=== PATIENT | male | born 1965 | race Hispanic/Latino ===

== ENCOUNTER 2020-02-16 21:40 | Emergency (ER) | payer SELFPAY ==
[~2020-02-16] VITALS: Ht 165.1 cm; Wt 113.4 kg
--- NOTE | 2020-02-16 21:49 | Emergency Department Note ---
History of Present Illnes History of Present Illness Chief Complaint: General Medicine Complaints History of Present Illness This is a 54 year old male presents to the ED for elevated blood sugar and penile swelling of 4 weeks duration. Reports generalized weakness with dyspnea and CP Historian: Patient Onset (how long ago): week(s) (4) Severity: moderate Onset quality: gradual Duration (how long): week(s) (4) Timing of current episode: constant Progression: unchanged Chronicity: new Context: Denies recent illness, Denies recent surgery, Denies recent immobilization, Denies recent travel, Denies trauma/injury, Denies new medications, Denies hx of DVT/PE, Denies non-compliance w/ medications, Denies other Relieving factors: none Exacerbating factors: none Associated symptoms: Reports chest pain, Reports weakness Treatments prior to arrival: none Past Medical/Family History Physician Review I have reviewed the patient's past medical and family history. Any updates have been documented here. Past Medical History Recent Fever: No Clinical Suspicion of Infectio: No New/Unexplained Change in Ment: No Past Medical History: Hypertension, Diabetes Past Surgical History: None Social History Smoking Cessation: Current some day smoker Counseling Performed: Yes Alcohol Use: None Any Illegal Drug Use: No Review of Systems Review of Systems Constitutional: Reports malaise, Reports weakness Cardiovascular: Reports edema Genitourinary: Reports other (penile lesion) Physical Exam Related Data Allergies: Coded Allergies: No Known Allergies (Unverified , 02/16/20) Triage Vital Signs Vital Signs Date Time Temp Pulse Resp B/P (MAP) Pulse Ox O2 Delivery O2 Flow Rate FiO2 02/16/20 22:00 98.2 88 18 148/89 97 Room Air Vital signs reviewed: Yes Physical Exam CONSTITUTIONAL Constitutional: Present well-developed, Present well-nourished, Present obese HENT HENT: Present normocephalic, Present atraumatic, Present oropharynx clear/moist, Present nose normal HENT L/R: Present left ext ear normal, Present right ext ear normal EYES Eyes: Reports PERRL, Reports conjunctivae normal NECK Neck: Present ROM normal PULMONARY Pulmonary: Present effort normal, Present breath sounds normal CARDIOVASCULAR Cardiovascular: Present regular rhythm, Present heart sounds normal, Present capillary refill normal, Present normal rate GASTROINTESTINAL Abdominal: Present soft, Present nontender, Present bowel sounds normal GENITOURINARY Genitourinary: Present other (mild inflammation of the glans penis with hyperkerotosis of the foreskin) SKIN Skin: Present warm, Present dry MUSCULOSKELETAL Musculoskeletal: Present edema NEUROLOGICAL Neurological: Present alert, Present oriented x 3, Present no gross motor or sensory deficits PSYCHOLOGICAL Psychological: Present mood/affect normal, Present judgement normal Results Laboratory Lab results reviewed: Yes Laboratory comments Laboratory Tests Test 02/16/20 23:07 02/16/20 22:00 Arterial Blood pH 7.39 (7.35-7.45) Arterial Blood Partial Pressure CO2 38 mmHg (35-45) Arterial Blood Partial Pressure O2 83 mmHg (80-105) Arterial Blood HCO3 23 mmol/L (22-26) Arterial Blood Total CO2 24 Arterial Blood Oxygen Saturation 96.0 % (95-98) Arterial Blood Base Excess -1.0 mmol/L (-2 - 3) FiO2 21 % White Blood Count 5.82 x10e3/uL (4.8-10.8) Red Blood Count 5.37 x10e6/uL (4.3-5.7) Hemoglobin 14.3 g/dL (14.0-18.0) Hematocrit 43.9 % (38.2-49.6) Mean Corpuscular Volume 81.8 fL (81-99) Mean Corpuscular Hemoglobin 26.6 pg (28-32) Mean Corpuscular Hemoglobin Concent 32.6 g/dL (31-35) Red Cell Distribution Width 13.3 % (11.7-14.4) Platelet Count 267 x10e3/uL (140-360) Neutrophils (%) (Auto) 55.5 % (38.7-80.0) Lymphocytes (%) (Auto) 33.7 % (18.0-39.1) Monocytes (%) (Auto) 9.3 % (4.4-11.3) Eosinophils (%) (Auto) 1.0 % (0.0-6.0) Basophils (%) (Auto) 0.2 % (0.0-1.0) Neutrophils # (Auto) 3.2 (2.1-6.9) Lymphocytes # (Auto) 2.0 (1.0-3.2) Monocytes # (Auto) 0.5 (0.2-0.8) Eosinophils # (Auto) 0.1 (0.0-0.4) Basophils # (Auto) 0.0 (0.0-0.1) Absolute Immature Granulocyte (auto 0.02 x10e3/uL (0-0.1) Urine Color Yellow (YELLOW) Urine Clarity Clear (CLEAR) Urine pH 5.5 (5 - 7) Urine Specific [place] 1.010 (1.010-1.025) Urine Protein Negative (NEGATIVE) Urine Glucose (UA) 2+ (NEGATIVE) Urine Ketones Negative (NEGATIVE) Urine Blood Negative (NEGATIVE) Urine Nitrite Negative (NEGATIVE) Urine Bilirubin Negative (NEGATIVE) Urine Urobilinogen 0.2 mg/dL (0.2 - 1) Urine Leukocyte Esterase Negative (NEGATIVE) Urine RBC 0-5 /HPF (0-5) Urine WBC 0-5 /HPF (0-5) Urine Epithelial Cells Few /LPF (NONE) Urine Bacteria Few /HPF (NONE) Sodium Level 134 mmol/L (136-145) Potassium Level 4.0 mmol/L (3.5-5.1) Chloride Level 99 mmol/L (98-107) Carbon Dioxide Level 24 mmol/L (22-29) Anion Gap 15.0 mmol/L (8-16) Blood Urea Nitrogen 14 mg/dL (7-26) Creatinine 1.20 mg/dL (0.72-1.25) Estimat Glomerular Filtration Rate > 60 ML/MIN (60-) BUN/Creatinine Ratio 12 (6-25) Glucose Level 425 mg/dL (74-118) Calcium Level 9.0 mg/dL (8.4-10.2) Total Bilirubin 0.2 mg/dL (0.2-1.2) Aspartate Amino Transf (AST/SGOT) 16 IU/L (5-34) Alanine Aminotransferase (ALT/SGPT) 28 IU/L (0-55) Alkaline Phosphatase 122 IU/L (40-150) Creatine Kinase 94 IU/L (30-200) Creatine Kinase MB 2.10 ng/mL (0-5.0) Troponin I 0.011 ng/mL (0-0.300) B-Type Natriuretic Peptide < 10.0 pg/mL (0-100) Total Protein 7.4 g/dL (6.5-8.1) Albumin 4.3 g/dL (3.5-5.0) Globulin 3.1 g/dL (2.3-3.5) Albumin/Globulin Ratio 1.4 (0.8-2.0) Imaging Imaging results reviewed: Yes Impressions [facility] [address] [address] Patient Name: JUDY GONZALEZ MR #: [id number] : 1965 Age/Sex: 54/M Req #: [id number] Adm Physician: Ordered by: JALEN LOPEZ DO Report #: [id number] Location: ER Room/Bed: Procedure: [id number] DX/CHEST SINGLE (PORTABLE) Exam Date: 02/16/20 Exam Time: 2224 REPORT STATUS: Signed EXAMINATION: CHEST SINGLE (PORTABLE) INDICATION: ^ERMD ORDER ^[id number] ^2224 ^Y COMPARISON: None FINDINGS: AP view TUBES and LINES: None. LUNGS: Lungs are well inflated. There is no evidence of pneumonia or pulmonary edema. PLEURA: No pleural effusion or pneumothorax. HEART AND MEDIASTINUM: The cardiomediastinal silhouette is unremarkable. BONES AND SOFT TISSUES: No acute osseous lesion. Soft tissues are unremarkable. UPPER ABDOMEN: No free air under the diaphragm. IMPRESSION: No acute thoracic abnormality. Signed by: Dr. Nigel Alvarado MD on 02/16/2020 11:33 PM Dictated By: NIGEL ALVARADO MD 32 Transcribed By: KINA on 02/16/202332 COPY TO: JALEN LOPEZ DO~ Assessment & Plan Medical Decision Making MDM Diff Dx : CHF, DKA, ACS, UTI, balanitis, phimosis, paraphimosis Assessment & Plan Final Impression: (1) Hyperglycemia (2) Balanitis Depart Disposition: HOME, SELF-CARE JALEN LOPEZ DO Feb 16, 2020 21:49
--- NOTE | 2020-02-16 22:37 | NUR ---
PER ER MD, EKG NOT INDICATED AT THIS TIME; ORDER TO BE CANCELED
[2020-02-16 22:39] LABS: BASOPHILS % 0.2 % (0.0-1.0); EOSINOPHILS # (AUTO) 0.1 (0.0-0.4); HEMATOCRIT 43.9 % (38.2-49.6); HEMOGLOBIN 14.3 g/dL (14.0-18.0); LYMPHOCYTES % 33.7 % (18.0-39.1); MEAN CORPUSCULAR HEMOGLOBIN 26.6 pg (28-32); MEAN CORPUSCULAR HGB CONC 32.6 g/dL (31-35); MEAN CORPUSCULAR VOLUME 81.8 fL (81-99); MONOCYTES # (AUTO) 0.5 (0.2-0.8); MONOCYTES % 9.3 % (4.4-11.3); NEUTROPHILS # (AUTO) 3.2 (2.1-6.9); NEUTROPHILS % 55.5 % (38.7-80.0); PLATELET COUNT 267 x10e3/uL (140-360); RED BLOOD COUNT 5.37 x10e6/uL (4.3-5.7); RED CELL DISTRIBUTION WIDTH 13.3 % (11.7-14.4)
[2020-02-16 22:40] LABS: BILIRUBIN,URINE NEGATIVE (NEGATIVE); CLARITY,URINE CLEAR (CLEAR); COLOR,URINE YELLOW (YELLOW); KETONES,URINE NEGATIVE (NEGATIVE); LEUKOCYTE ESTERASE ,URINE NEGATIVE (NEGATIVE); NITRITE,URINE NEGATIVE (NEGATIVE); PROTEIN,URINE DIPSTICK NEGATIVE (NEGATIVE); URINE UROBILINOGEN 0.2 mg/dL (0.2 - 1)
[2020-02-16 22:45] LABS: BACTERIA,URINE FEW /HPF; EPITHELIAL CELLS,URINE FEW /LPF; RBC,URINE 0-5 /HPF (0-5); WBC,URINE (MAN) 0-5 /HPF (0-5)
[2020-02-16 22:56] LABS: ALANINE AMINOTRANSFERASE 28 IU/L (0-55); ALBUMIN 4.3 g/dL (3.5-5.0); ALBUMIN/GLOBULIN RATIO 1.4 (0.8-2.0); ALKALINE PHOSPHATASE 122 IU/L (40-150); BLOOD UREA NITROGEN 14 mg/dL (7-26); BUN/CREATININE RATIO 12 (6-25); CARBON DIOXIDE 24 mmol/L (22-29); CHLORIDE 99 mmol/L (98-107); CREATINE KINASE 94 IU/L (30-200); EST GLOMERULAR FILTRATION RATE > 60 ML/MIN (60-); SODIUM 134 mmol/L (136-145)
[2020-02-16 22:57] LABS: GLUCOSE 425 mg/dL (74-118)
[2020-02-16] MEDS ORDERED: SODIUM CHLORIDE 0.9% 1000ML 1,000 ML IV STA (23:08)
[2020-02-16] MEDS ORDERED: INSULIN REGULAR, HUMAN 100 UNIT/1 ML 3ML VIAL IV ONE (23:15)
[2020-02-16 23:34] LABS: ABG HCO3 23 mmol/L (22-26); ABG PCO2 38 mmHg (35-45); ABG PH 7.39 (7.35-7.45); ABG PO2 83 mmHg (80-105); ABG TCO2 24
--- NOTE | 2020-02-16 23:36 | Diagnostic Imaging Report ---
EXAMINATION: CHEST SINGLE (PORTABLE) INDICATION: ^ERMD ORDER ^[id number] ^2225 ^Y COMPARISON: None FINDINGS: AP view TUBES and LINES: None. LUNGS: Lungs are well inflated. There is no evidence of pneumonia or pulmonary edema. PLEURA: No pleural effusion or pneumothorax. HEART AND MEDIASTINUM: The cardiomediastinal silhouette is unremarkable. BONES AND SOFT TISSUES: No acute osseous lesion. Soft tissues are unremarkable. UPPER ABDOMEN: No free air under the diaphragm. IMPRESSION: No acute thoracic abnormality. Signed by: Dr. Nigel Alvarado MD on 02/16/2020 11:33 PM
[2020-02-17 01:14] VITALS: BP 105/85
== END 2020-02-17 01:18 | disposition home or self-care (01) ==
LOC: ER 22:51
DX: N48.1 Balanitis (principal); E11.65 Type 2 diabetes mellitus with hyperglycemia; I10 Essential (primary) hypertension; F17.210 Nicotine dependence, cigarettes, uncomplicated
CPT/HCPCS: 36415; 71045; 80053; 81001; 82550; 82553; 82805; 83880; 84484; 85025; 99283; J7030; 82948; J1817

== ENCOUNTER 2020-06-09 20:24 | Inpatient (IN) | payer SELFPAY ==
[~2020-06-09] VITALS: Ht 165.1 cm; Wt 108.1 kg
[2020-06-09] MEDS ORDERED: CEFEPIME 1GM/NS 0.9% 50 ML 50 ML IV STA (20:26)
[2020-06-09] MEDS ORDERED: SODIUM CHLORIDE 0.9% 1000ML 1,000 ML IV STA (20:26)
[2020-06-09] MEDS ORDERED: ASPIRIN 81 MG CHEW TAB PO ONE (20:30)
[2020-06-09] MEDS ORDERED: ACETAMINOPHEN 325 MG TAB PO ONE (20:30)
[2020-06-09 21:08] LABS: BASOPHILS % 0.2 % (0.0-1.0); EOSINOPHILS % 0.1 % (0.0-6.0); HEMATOCRIT 40.1 % (38.2-49.6); HEMOGLOBIN 13.5 g/dL (14.0-18.0); LYMPHOCYTES # (AUTO) 1.9 (1.0-3.2); LYMPHOCYTES % 14.5 % (18.0-39.1); MEAN CORPUSCULAR HEMOGLOBIN 26.8 pg (28-32); MEAN CORPUSCULAR HGB CONC 33.7 g/dL (31-35); MEAN CORPUSCULAR VOLUME 79.6 fL (81-99); MONOCYTES # (AUTO) 1.4 (0.2-0.8); MONOCYTES % 10.9 % (4.4-11.3); NEUTROPHILS # (AUTO) 9.5 (2.1-6.9); NEUTROPHILS % 73.8 % (38.7-80.0); PLATELET COUNT 309 x10e3/uL (140-360); RED BLOOD COUNT 5.04 x10e6/uL (4.3-5.7); RED CELL DISTRIBUTION WIDTH 12.9 % (11.7-14.4)
[2020-06-09 21:32] LABS: ALANINE AMINOTRANSFERASE 41 IU/L (0-55); ALBUMIN 2.9 g/dL (3.5-5.0); ALBUMIN/GLOBULIN RATIO 0.5 (0.8-2.0); ALKALINE PHOSPHATASE 92 IU/L (40-150); ANION GAP 19.4 mmol/L (8-16); BLOOD UREA NITROGEN 14 mg/dL (7-26); BUN/CREATININE RATIO 12 (6-25); CALCIUM 9.3 mg/dL (8.4-10.2); CARBON DIOXIDE 20 mmol/L (22-29); CHLORIDE 93 mmol/L (98-107); CREATINE KINASE 329 IU/L (30-200); EST GLOMERULAR FILTRATION RATE > 60 ML/MIN (60-); GLUCOSE 158 mg/dL (74-118); POTASSIUM 4.4 mmol/L (3.5-5.1); SODIUM 128 mmol/L (136-145)
[2020-06-09] MEDS ORDERED: SODIUM CHLORIDE 0.9% 50ML 50 ML ONE (23:00)
[2020-06-09] MEDS ORDERED: IOPAMIDOL 370 MG/ML 200 ML INFUS..BTL INJ ONE (23:00)
[2020-06-10] MEDS: SODIUM CHLORIDE 0.9% 1000ML 1,000 ML IV SCH ×3 (05:29→17:18)
[2020-06-10] MEDS: ACETAMINOPHEN 325 MG TAB PO PRN ×2 (05:48→13:31)
[2020-06-10] MEDS: ONDANSETRON HCL INJ 2MG/ML 2ML 2 MG/ML VIAL IV PRN ×2 (13:31→22:08)
[2020-06-10] MEDS ORDERED: ACETAMINOPHEN 325 MG TAB PO PRN (15:45)
[2020-06-10] MEDS ORDERED: DEXTROSE 50% SYRINGE 50 ML IV PRN (16:00)
[2020-06-10 16:25] LABS: CLARITY,URINE HAZY (CLEAR); COLOR,URINE YELLOW (YELLOW); KETONES,URINE NEGATIVE (NEGATIVE); LEUKOCYTE ESTERASE ,URINE SMALL (NEGATIVE); NITRITE,URINE NEGATIVE (NEGATIVE); PROTEIN,URINE DIPSTICK 1+ (NEGATIVE); URINE UROBILINOGEN 0.2 mg/dL (0.2 - 1)
[2020-06-10 16:30] LABS: AMORPHOUS SEDIMENT,URINE FEW (FEW); BACTERIA,URINE FEW /HPF; EPITHELIAL CELLS,URINE FEW /LPF; MUCUS,URINE FEW (RARE); WBC,URINE (MAN) 21-50 /HPF (0-5)
[2020-06-10 17:24] VITALS: BP 122/77
[2020-06-10 17:25] VITALS: BP 122/77
[2020-06-10 17:37] VITALS: BP 122/77
[2020-06-10 20:23] VITALS: BP 133/71
[2020-06-10 21:46] VITALS: BP 133/71
[2020-06-10] MEDS: CEFEPIME 1GM/NS 0.9% 50 ML 50 ML IV SCH (22:00)
[2020-06-10] MEDS ORDERED: CEFEPIME HCL 1 GM VIAL IV SCH (22:00)
[2020-06-10] MEDS ORDERED: LISINOPRIL10 MG PO (22:30)
[2020-06-10] MEDS ORDERED: ATORVASTATIN CA20 MG PO (22:30)
[2020-06-10] MEDS ORDERED: METFORMIN HCL500 MG PO (22:30)
[2020-06-10] MEDS ORDERED: JANUVIA100 MG PO (22:30)
[2020-06-11] VITALS (8 sets, daily range): BP systolic 112–131; BP diastolic 59–79
[2020-06-11] MEDS: SODIUM CHLORIDE 0.9% 1000ML 1,000 ML IV SCH ×2 (01:00→10:00)
[2020-06-11] MEDS: CEFEPIME 1GM/NS 0.9% 50 ML 50 ML IV SCH ×3 (05:09→22:00)
[2020-06-11 06:13] LABS: BASOPHILS % 0.4 % (0.0-1.0); EOSINOPHILS % 0.4 % (0.0-6.0); HEMATOCRIT 34.6 % (38.2-49.6); HEMOGLOBIN 11.1 g/dL (14.0-18.0); LYMPHOCYTES # (AUTO) 1.3 (1.0-3.2); MEAN CORPUSCULAR HEMOGLOBIN 26.5 pg (28-32); MEAN CORPUSCULAR HGB CONC 32.1 g/dL (31-35); MEAN CORPUSCULAR VOLUME 82.6 fL (81-99); MONOCYTES # (AUTO) 0.8 (0.2-0.8); MONOCYTES % 16.3 % (4.4-11.3); NEUTROPHILS # (AUTO) 2.9 (2.1-6.9); NEUTROPHILS % 56.5 % (38.7-80.0); PLATELET COUNT 201 x10e3/uL (140-360); RED BLOOD COUNT 4.19 x10e6/uL (4.3-5.7)
[2020-06-11 07:02] LABS: ANION GAP 13.9 mmol/L (8-16); BLOOD UREA NITROGEN 11 mg/dL (7-26); BUN/CREATININE RATIO 13 (6-25); CARBON DIOXIDE 23 mmol/L (22-29); CHLORIDE 104 mmol/L (98-107); CREATININE, SERUM 0.87 mg/dL (0.72-1.25); EST GLOMERULAR FILTRATION RATE > 60 ML/MIN (60-); GLUCOSE 133 mg/dL (74-118); POTASSIUM 3.9 mmol/L (3.5-5.1); SODIUM 137 mmol/L (136-145)
[2020-06-11] MEDS: METFORMIN HCL 500 MG TAB PO SCH ×2 (10:00→16:45)
[2020-06-12 01:15] VITALS: BP 117/78
[2020-06-12] MEDS: CEFEPIME 1GM/NS 0.9% 50 ML 50 ML IV SCH ×2 (05:41→15:00)
[2020-06-12 06:24] LABS: ANION GAP 12.9 mmol/L (8-16); BLOOD UREA NITROGEN 9 mg/dL (7-26); BUN/CREATININE RATIO 12 (6-25); CALCIUM 8.4 mg/dL (8.4-10.2); CARBON DIOXIDE 22 mmol/L (22-29); CHLORIDE 103 mmol/L (98-107); CREATININE, SERUM 0.78 mg/dL (0.72-1.25); EST GLOMERULAR FILTRATION RATE > 60 ML/MIN (60-); GLUCOSE 129 mg/dL (74-118); POTASSIUM 3.9 mmol/L (3.5-5.1); SODIUM 134 mmol/L (136-145)
[2020-06-12 06:51] LABS: BASOPHILS % 0.5 % (0.0-1.0); EOSINOPHILS % 0.7 % (0.0-6.0); HEMATOCRIT 35.3 % (38.2-49.6); HEMOGLOBIN 11.4 g/dL (14.0-18.0); LYMPHOCYTES # (AUTO) 1.8 (1.0-3.2); LYMPHOCYTES % 30.9 % (18.0-39.1); MEAN CORPUSCULAR HEMOGLOBIN 26.5 pg (28-32); MEAN CORPUSCULAR HGB CONC 32.3 g/dL (31-35); MEAN CORPUSCULAR VOLUME 81.9 fL (81-99); MONOCYTES % 18.4 % (4.4-11.3); NEUTROPHILS # (AUTO) 2.8 (2.1-6.9); PLATELET COUNT 217 x10e3/uL (140-360); RED BLOOD COUNT 4.31 x10e6/uL (4.3-5.7); RED CELL DISTRIBUTION WIDTH 12.9 % (11.7-14.4)
[2020-06-12 07:11] VITALS: BP 133/95
[2020-06-12 08:30] VITALS: BP 117/76
[2020-06-12] MEDS: METFORMIN HCL 500 MG TAB PO SCH ×2 (09:05→16:32)
[2020-06-12 11:17] VITALS: BP 116/79
[2020-06-12 11:53] VITALS: BP 108/77
[2020-06-12] MEDS ORDERED: ACETAMINOPHEN325 M1 PO (15:32)
[2020-06-12] MEDS ORDERED: CEFDINIR300 MG PO (15:38)
[2020-06-12 15:40] VITALS: BP 106/86
== END 2020-06-12 17:50 | disposition home or self-care (01) | DRG 690 ==
LOC: ER 20:28 → ERHOLD 06-10 01:04 → MED/SURG3 06-10 16:48
PROVIDERS: ADMIT Internal Medicine; ATTEND Internal Medicine
DX: N10 Acute pyelonephritis (principal); E87.1 Hypo-osmolality and hyponatremia; E11.65 Type 2 diabetes mellitus with hyperglycemia; I10 Essential (primary) hypertension; E78.5 Hyperlipidemia, unspecified; N17.9 Acute kidney failure, unspecified; N30.90 Cystitis, unspecified without hematuria; E86.0 Dehydration; E11.29 Type 2 diabetes mellitus with other diabetic kidney complication; N28.9 Disorder of kidney and ureter, unspecified; Z20.822 Contact with and (suspected) exposure to COVID-19; Z79.84 Long term (current) use of oral hypoglycemic drugs
CPT/HCPCS: 36415; 71045; 74177; 80048; 80053; 81001; 82550; 82553; 82948; 83036; 83605; 83690; 84484; 85025; 87040; 87086; 99284; J0692; J2405; J7030; Q9967; U0002

== ENCOUNTER 2020-06-20 21:59 | Emergency (ER) | payer SELFPAY ==
[~2020-06-20] VITALS: Ht 165.1 cm; Wt 113.4 kg
[~2020-06-20 21:59] MED LIST: ACETAMINOPHEN325 M1 PO; ATORVASTATIN CA20 MG PO; CEFDINIR300 MG PO; JANUVIA100 MG PO; LISINOPRIL10 MG PO; METFORMIN HCL500 MG PO
[2020-06-20 22:26] LABS: CLARITY,URINE CLEAR (CLEAR); COLOR,URINE YELLOW (YELLOW); KETONES,URINE NEGATIVE (NEGATIVE); LEUKOCYTE ESTERASE ,URINE TRACE (NEGATIVE); NITRITE,URINE NEGATIVE (NEGATIVE); PROTEIN,URINE DIPSTICK NEGATIVE (NEGATIVE); URINE UROBILINOGEN 0.2 mg/dL (0.2 - 1)
[2020-06-20 22:35] LABS: BACTERIA,URINE FEW /HPF; EPITHELIAL CELLS,URINE FEW /LPF
[2020-06-20 23:20] VITALS: BP 142/87
== END 2020-06-20 23:22 | disposition home or self-care (01) ==
LOC: ER 22:09
DX: R33.9 Retention of urine, unspecified (principal); N39.0 Urinary tract infection, site not specified; I10 Essential (primary) hypertension; E11.9 Type 2 diabetes mellitus without complications; E78.5 Hyperlipidemia, unspecified
CPT/HCPCS: 51700; 81001; 87086; 99283